=== PATIENT | female | born 1965 | race Caucasian/White ===

== ENCOUNTER 2018-11-14 19:08 | Emergency (ER) | payer OTHER, BC ==
[~2018-11-14] VITALS: Ht 175.3 cm; Wt 116.1 kg
--- NOTE | 2018-11-14 20:18 | Diagnostic Imaging Report ---
INDICATION: Fell, hand pain. EXAMINATION: Left hand at 7:48 p.m. Three views were obtained. COMPARISON: There are no prior studies available for comparison. FINDINGS: There is no fracture, dislocation or acute bony abnormality evident. There is mild narrowing of the radiocarpal joint. The soft tissues are unremarkable. IMPRESSION: There is no evidence for an acute bony abnormality. Dictated by: Dictated on workstation # [id number]
--- NOTE | 2018-11-14 20:39 | ED Upper Extremity ---
General Chief Complaint: Upper Extremity Stated Complaint: LF ARM PAIN Nursing Triage Note: PT TO ED W/ C/O LT ARM PAIN ONSET AFTER FALLING YESTERDAY. REPORTS WAS ABLE TO MOVE IT YESTERDAY AFTER FALLING BUT TODAY HAS NOTED SWELLING TO FINGERS ET INCREASED PAIN. NO OTHER C/O VOICED Nursing Sepsis Screen: No Definite Risk Source: patient Exam Limitations: no limitations History of Present Illness Date Seen by Provider: Nov 14, 2018 Time Seen by Provider: 19:39 Initial Comments 53-year-old female who presents to emergency room with complaints of left arm pain after falling yesterday. She reports that she was able to move the extremity yesterday when she woke up this morning she noticed swelling in her fingers and increased pain with movement. Denies other injuries from her fall. Onset: just prior to arrival Pain/Injury Location: left wrist, left hand Method of Injury: fell Modifying Factors: Worse With Movement Allergies and Home Medications Allergies Coded Allergies: meperidine (Unverified Allergy, Unknown, 11/14/18) morphine (Unverified Allergy, Unknown, 11/14/18) Patient Home Medication List Home Medication List Reviewed: Yes Review of Systems Constitutional: see HPI; No chills, No fever Musculoskeletal: see HPI, joint pain (left hand) All Other Systems Reviewed Negative Unless Noted: Yes Past Uadtelv-Ledcfl-Oexvam Hx Past Med/Social Hx: Reviewed Nursing Past Med/Soc Hx Patient Social History Alcohol Use: Rarely Uses Recreational Drug Use: No Smoking Status: Current Everyday Smoker Type Used: Cigarettes Recent Foreign Travel: No Contact w/Someone Who Travel: No Recent Infectious Disease Expo: No Past Medical History Surgeries: Yes Appendectomy, Hysterectomy, Orthopedic Respiratory: No Cardiac: Yes High Cholesterol, Hypertension Neurological: No Genitourinary: No Gastrointestinal: No Musculoskeletal: No Endocrine: No HEENT: No Cancer: No Psychosocial: No Integumentary: No Family Medical History Reviewed Nursing Family Hx Physical Exam Vital Signs Vital Signs - First Documented 11/14/18 19:27 Temp 97.6 Pulse 75 Resp 18 B/P (MAP) 140/103 (115) Pulse Ox 96 O2 Delivery Room Air Capillary Refill : Less Than 3 Seconds Height, Weight, BMI Height: 5'9.00" Weight: 256lbs. oz. 116.322161sb; BMI Method:Stated General Appearance: WD/WN, no apparent distress Cardiovascular: normal peripheral pulses, regular rate, rhythm, no edema, no gallop, no JVD, no murmur Respiratory: chest non-tender, lungs clear, normal breath sounds, no respiratory distress, no accessory muscle use Hand: Left, ecchymosis, soft tissue tenderness, stiffness Neurologic/Tendon: normal sensation, normal motor functions, normal tendon functions, responds to pain, no evidence tendon injury Neurologic/Psychiatric: alert, normal mood/affect, oriented x 3 Skin: normal color, warm/dry Progress/Results/Core Measures Results/Orders My Orders Orders - ADRIA KUHN Hand, Left, 3 Views (11/14/18 19:39) Vital Signs/I&O Blood Pressure Mean: 115 Departure Impression Primary Impression: Contusion of hand Disposition: HOME, SELF-CARE Condition: Stable/Unchanged Departure-Patient Inst. Decision time for Depature: 20:39 Referrals: NO,LOCAL PHYSICIAN (PCP/Family) Primary Care Physician Patient Instructions: Common Wrist Injuries (DC) Add. Discharge Instructions: Ice to the sore areas at 20 minute intervals. Tylenol and ibuprofen as directed by the bottle for pain relief. Follow-up with your primary care provider if no improvement within 1 week. Return back to the emergency room for worsening symptoms or concerns as needed. All discharge instructions reviewed with patient and/or family. Voiced understanding. ADRIA KUHN Nov 14, 2018 20:39
[2018-11-14 20:46] VITALS: BP 0/0
== END 2018-11-14 20:46 | disposition home or self-care (01) ==
LOC: ER 19:12
DX: S60.222A Contusion of left hand, initial encounter (principal); E78.00 Pure hypercholesterolemia, unspecified; I10 Essential (primary) hypertension; F17.210 Nicotine dependence, cigarettes, uncomplicated; Z90.49 Acquired absence of other specified parts of digestive tract; Z90.710 Acquired absence of both cervix and uterus; Z88.5 Allergy status to narcotic agent; Z88.8 Allergy status to other drugs, medicaments and biological substances; W19.XXXA Unspecified fall, initial encounter
CPT/HCPCS: 73130

== ENCOUNTER → 2019-02-17 | Outpatient (REF) ==
[~2019-02-17] MED LIST: GADOBUTROL 7.5 MMOL/7.5 ML (GADAVIST) VIAL IV ONE; IOHEXOL 240 MGI/ML 20 ML (OMNIPAQUE) VIAL IV ONE
== END | disposition home or self-care (01) ==
LOC: EDBD → MERGE 11:58 → OCC 11:58
PROVIDERS: ATTEND Nurse Practitioner Family